=== PATIENT | male | born 1955 | race African-American/Black ===

== ENCOUNTER 2017-03-10 11:50 | Emergency (ER) | payer MEDICAID, MEDICARE ==
[~2017-03-10] VITALS: Ht 177.8 cm; Wt 76.0 kg
[~2017-03-10 11:50] MED LIST: AMLO10TA80 PO; LISI10TA5 PO
[2017-03-10] MEDS ORDERED: SODIUM CHLORIDE 0.9% 1,000 ML IV ONE (12:05)
[2017-03-10] MEDS ORDERED: KETOROLAC 30MG/ML VIAL IV STA (12:05)
[2017-03-10 13:07] LABS: BASOPHILS % 0.3 % (0.0-2.0); EOSINOPHILS % 1.6 % (0.0-5.0); HEMATOCRIT. 44.8 % (42.0-52.0); HEMOGLOBIN. 15.4 g/dL (14.0-18.0); LYMPHOCYTES % 19.9 % (20.0-50.0); MEAN CORPUSCULAR HEMOGLOBIN 31.5 pg (28.0-32.0); MEAN CORPUSCULAR VOLUME 91.7 fL (80.0-94.0); MEAN PLATELET VOLUME 8.1 fl (7.4-10.4); MONOCYTES % 12.1 % (2.0-8.0); NEUTROPHILS % 66.1 % (40.0-76.0); PLATELET 208 x1000/uL (130-400); RED BLOOD CELL COUNT 4.89 mill/uL (4.7-6.1); RED CELL DISTRIBUTION WIDTH 15.7 % (11.6-14.6)
[2017-03-10 13:14] LABS: INR 1.3; PROTHROMBIN TIME 13.2 sec (9.4-11.6)
[2017-03-10 13:19] LABS: CARBON DIOXIDE 24 mEq/L (21-32); CHLORIDE 102 mEq/L (98-107)
[2017-03-10 14:23] LABS: CLARITY URINE CLEAR (CLEAR); COLOR URINE YELLOW (YELLOW); GLUCOSE URINE NEGATIVE (NEGATIVE); KETONES URINE NEGATIVE (NEGATIVE); LEUKOCYTE ESTERASE URINE NEGATIVE (NEGATIVE); NITRITE URINE NEGATIVE (NEGATIVE); OCCULT BLOOD URINE NEGATIVE (NEGATIVE); PH URINE 7.5 (4.5-8.0); PROTEIN URINE NEGATIVE (NEGATIVE); SPECIFIC GRAVITY URINE 1.006 (1.005-1.030)
[2017-03-10 16:50] VITALS: BP 136/94
== END 2017-03-10 16:52 | disposition home or self-care (01) ==
LOC: ER 13:57
DX: E86.0 Dehydration (principal); I10 Essential (primary) hypertension; J98.11 Atelectasis
CPT/HCPCS: 36415; 71010; 80053; 81003; 84484; 85025; 85610; 86850; 86900; 86901; 93005; 96361; 96374; 99285; J1885; J7030

== ENCOUNTER 2017-12-10 07:27 | Emergency (ER) | payer MEDICARE, MEDICAID ==
[~2017-12-10] VITALS: Ht 185.4 cm; Wt 80.0 kg
[~2017-12-10 07:27] MED LIST changes: +RIVA20TA MT
[2017-12-10] MEDS ORDERED: KETOROLAC 30MG/ML VIAL IV ONE (08:45)
[2017-12-10 09:15] LABS: HEMATOCRIT. 34.5 % (42.0-52.0); HEMOGLOBIN. 11.7 g/dL (14.0-18.0); MEAN CORPUSCULAR HEMOGLOBIN 30.6 pg (28.0-32.0); MEAN CORPUSCULAR VOLUME 90.6 fL (80.0-94.0); MEAN PLATELET VOLUME 7.5 fl (7.4-10.4); PLATELET 210 x1000/uL (130-400); RED BLOOD CELL COUNT 3.81 mill/uL (4.7-6.1); RED CELL DISTRIBUTION WIDTH 14.5 % (11.6-14.6)
[2017-12-10 09:20] LABS: CHLORIDE 110 mEq/L (98-107)
[2017-12-10 09:26] LABS: D-DIMER 0.53 mg/L FEU (<0.50); INR 1.3; PARTIAL THROMBOPLASTIN TIME 30.8 sec (23.4-31.0); PROTHROMBIN TIME 13.3 sec (9.4-11.6)
[2017-12-10] MEDS ORDERED: HYDRALAZINE 20MG/ML VIAL IV ONE (09:30)
[2017-12-10] MEDS ORDERED: POTASSIUM CHLORIDE 20MEQ TABLET SR PO ONE (10:15)
[2017-12-10] MEDS ORDERED: ONDANSETRON HCL 4MG/2ML VIAL IV ONE (10:30)
[2017-12-10] MEDS ORDERED: MORPHINE SULFATE 4 MG/ML CPJ (NOT FOR IM USE) IV ONE (10:30)
[2017-12-10 11:08] LABS: PLATELET ESTIMATE NORMAL
[2017-12-10] MEDS ORDERED: IOHEXOL-350 100 ML BOTTLE ONE (12:44)
[2017-12-10 12:51] VITALS: BP 163/111
== END 2017-12-10 13:10 | disposition home or self-care (01) ==
LOC: ER 08:13
DX: R07.89 Other chest pain (principal); I10 Essential (primary) hypertension; J44.9 Chronic obstructive pulmonary disease, unspecified; M54.5 Low back pain; Z87.01 Personal history of pneumonia (recurrent)
CPT/HCPCS: 36415; 71045; 71275; 80053; 83880; 84484; 85025; 85379; 85610; 85730; 93005; 93970; 96374; 96375; 99285; J0360; J1885; J2270; J2405; Q9967; J7040

== ENCOUNTER 2018-01-15 14:42 | Emergency (ER) | payer MEDICARE, MEDICAID ==
[~2018-01-15] VITALS: Ht 182.9 cm; Wt 70.0 kg
[2018-01-15 16:58] LABS: BASOPHILS % 1.1 % (0.0-2.0); HEMATOCRIT. 36.7 % (42.0-52.0); HEMOGLOBIN. 12.2 g/dL (14.0-18.0); INR 1.2; MEAN CORPUSCULAR HEMOGLOBIN 30.4 pg (28.0-32.0); MEAN CORPUSCULAR VOLUME 91.4 fL (80.0-94.0); MEAN PLATELET VOLUME 7.9 fl (7.4-10.4); MONOCYTES % 13.5 % (2.0-8.0); NEUTROPHILS % 59.4 % (40.0-76.0); PLATELET 237 x1000/uL (130-400); PROTHROMBIN TIME 11.6 sec (9.1-11.1); RED BLOOD CELL COUNT 4.01 mill/uL (4.7-6.1); RED CELL DISTRIBUTION WIDTH 17.4 % (11.6-14.6)
[2018-01-15 16:59] LABS: CHLORIDE 106 mEq/L (98-107)
[2018-01-15] MEDS ORDERED: KETOROLAC 60MG/2ML VIAL IM ONE (17:15)
[2018-01-15] MEDS ORDERED: CEFTRIAXONE SODIUM 1 G/VIAL IM ONE (17:15)
[2018-01-15] MEDS ORDERED: TETANUS, DIPHTHERIA, PERTUSSIS VAC/PF 0.5ML (>7YR OLD) IM ONE (17:15)
[2018-01-15] MEDS ORDERED: SODIUM CHLORIDE 0.9% 1000ML BAG (SEPSIS BOLUS) IV ONE (17:45)
[2018-01-15 22:07] VITALS: BP 136/92
== END 2018-01-15 22:12 | disposition home or self-care (01) ==
LOC: ER 14:42
DX: T63.301A Toxic effect of unspecified spider venom, accidental (unintentional), initial encounter (principal); L02.413 Cutaneous abscess of right upper limb; Y92.89 Other specified places as the place of occurrence of the external cause; I10 Essential (primary) hypertension; E87.2 Acidosis; Z23 Encounter for immunization; Z79.899 Other long term (current) drug therapy
CPT/HCPCS: 36415; 73090; 80053; 83605; 85025; 85610; 87040; 87070; 87077; 87205; 90471; 90715; 96372; 99285; J0696; J1885; J7030

== ENCOUNTER → 2018-02-25 | Outpatient (CLI) | payer MEDICARE, MEDICAID | END | disposition home or self-care (01) | LOC: US 07:53 | PROVIDERS: ATTEND Internal Medicine Gastroenterology | DX: K80.20 Calculus of gallbladder without cholecystitis without obstruction (principal); N28.1 Cyst of kidney, acquired; B18.2 Chronic viral hepatitis C | CPT/HCPCS: 76700 ==

== ENCOUNTER 2018-09-12 11:03 | Inpatient (IN) | payer OTHER, MEDICAID ==
[~2018-09-12] VITALS: Ht 180.3 cm; Wt 82.6 kg
[2018-09-12] MEDS ORDERED: NITROGLYCERIN 0.4MG TABLET SL SL PRN (14:15)
[2018-09-12] MEDS ORDERED: ASPIRIN 81MG TABLET PO ONE (14:15)
[2018-09-12 15:16] LABS: CHLORIDE 109 mEq/L (98-107)
[2018-09-12 15:19] LABS: D-DIMER 1.98 mg/L FEU (<0.50); INR 1.2; PARTIAL THROMBOPLASTIN TIME 28.5 sec (23.4-31.0); PROTHROMBIN TIME 12.6 sec (9.6-11.0)
[2018-09-12 15:22] LABS: BASOPHILS % 1.2 % (0.0-2.0); EOSINOPHILS % 6.5 % (0.0-5.0); HEMATOCRIT. 30.2 % (42.0-52.0); HEMOGLOBIN. 9.6 g/dL (14.0-18.0); LYMPHOCYTES % 24.5 % (20.0-50.0); MEAN CORPUSCULAR HEMOGLOBIN 23.9 pg (28.0-32.0); MEAN CORPUSCULAR VOLUME 75.6 fL (80.0-94.0); NEUTROPHILS % 53.8 % (40.0-76.0); PLATELET 169 x1000/uL (130-400)
[2018-09-12] MEDS ORDERED: NITROGLYCERIN OINT 1GM/INCH UDPKT TD ONE (17:00)
[2018-09-12] MEDS ORDERED: FUROSEMIDE 40MG/4ML VIAL IV ONE (17:00)
[2018-09-12] MEDS ORDERED: IOHEXOL-350 100 ML BOTTLE ONE (21:26)
[2018-09-12 22:30] VITALS: BP 156/106
[2018-09-12 22:46] VITALS: BP 152/98
[2018-09-13] MEDS ORDERED: ONDANSETRON HCL 4MG/2ML INJ IV PRN
[2018-09-13] MEDS ORDERED: ACETAMINOPHEN 325MG TABLET PO PRN
[2018-09-13] MEDS ORDERED: IPRATROPIUM/ALBUTEROL 0.5-3(2.5)MG/3ML NEB INH PRN
[2018-09-13] MEDS ORDERED: HYDROCODONE/ACETAMINOPHEN 5/325MG TABLET PO PRN
[2018-09-13] MEDS ORDERED: LEVOFLOXACIN 500MG PREMIX 100 ML IV SCH
[2018-09-13] MEDS: LORAZEPAM 2MG/ML CPJ IV PRN ×2 (01:16→21:02)
[2018-09-13] MEDS: LEVOFLOXACIN 500MG PREMIX 100 ML IV SCH (01:16)
[2018-09-13 02:00] LABS: *AMPHETAMINES SCREEN URINE NEGATIVE (NEGATIVE); *BARBITURATES SCREEN URINE NEGATIVE (NEGATIVE); *BENZODIAZEPINES SCREEN URINE NEGATIVE (NEGATIVE); *COCAINE SCREEN URINE NEGATIVE (NEGATIVE)
[2018-09-13 02:01] LABS: CANNABINOID URINE SCREEN NEGATIVE (NEGATIVE); METHADONE URINE SCREEN NEGATIVE (NEGATIVE); OPIATES URINE SCREEN NEGATIVE (NEGATIVE); PHENCYCLIDINE URINE SCREEN NEGATIVE (NEGATIVE)
[2018-09-13 04:00] VITALS: BP 152/99
[2018-09-13 07:07] LABS: EOSINOPHILS % 8.3 % (0.0-5.0); HEMATOCRIT. 30.1 % (42.0-52.0); HEMOGLOBIN. 9.8 g/dL (14.0-18.0); LYMPHOCYTES % 20.2 % (20.0-50.0); MEAN CORPUSCULAR VOLUME 74.1 fL (80.0-94.0); MEAN PLATELET VOLUME 8.4 fl (7.4-10.4); MONOCYTES % 11.7 % (2.0-8.0); NEUTROPHILS % 58.8 % (40.0-76.0); PLATELET 208 x1000/uL (130-400); RED BLOOD CELL COUNT 4.06 mill/uL (4.7-6.1)
[2018-09-13 07:30] LABS: CHLORIDE 107 mEq/L (98-107)
[2018-09-13 07:46] LABS: HDL CHOLESTEROL 47 mg/dL (40-59); LDL CHOLESTEROL 89 mg/dL (5-100)
[2018-09-13 07:48] LABS: CREATINE KINASE MB FRACTION 3.5 ng/mL (0.5-3.6); T4 FREE 1.41 ng/dL (0.76-1.46)
[2018-09-13 07:51] LABS: CREATINE KINASE 206 IU/L (39-308)
[2018-09-13] MEDS: ENOXAPARIN 40MG/0.4ML SYR SUBCUT SCH (08:42)
[2018-09-13] MEDS ORDERED: PREDNISONE 20MG TABLET PO SCH (13:45)
[2018-09-13 20:22] VITALS: BP 145/95
[2018-09-14] VITALS: BP 149/96
[2018-09-14] MEDS: LEVOFLOXACIN 500MG PREMIX 100 ML IV SCH (01:16)
[2018-09-14 04:05] VITALS: BP 158/83
[2018-09-14 08:00] VITALS: BP 142/95
[2018-09-14] MEDS: ENOXAPARIN 40MG/0.4ML SYR SUBCUT SCH (08:36)
[2018-09-14 12:00] VITALS: BP 156/93
[2018-09-14] MEDS: CLONIDINE 0.1MG TABLET PO PRN (12:09)
[2018-09-14 16:00] VITALS: BP 136/87
[2018-09-14] MEDS: LORAZEPAM 2MG/ML CPJ IV PRN (17:32)
[2018-09-14 20:00] VITALS: BP 129/76
[2018-09-14] MEDS ORDERED: ZOLPIDEM TARTRATE 5MG TABLET PO PRN (21:00)
[2018-09-15] VITALS: BP 131/97
[2018-09-15] MEDS: LEVOFLOXACIN 500MG PREMIX 100 ML IV SCH (01:50)
[2018-09-15] MEDS ORDERED: LEVOFLOXACIN 500MG TABLET PO NR (02:15)
[2018-09-15 04:00] VITALS: BP 145/71
[2018-09-15 08:00] VITALS: BP 166/108
[2018-09-15] MEDS: ENOXAPARIN 40MG/0.4ML SYR SUBCUT SCH (08:44)
[2018-09-15] MEDS: LORAZEPAM 2MG/ML CPJ IV PRN (08:45)
[2018-09-15] MEDS: CLONIDINE 0.1MG TABLET PO PRN (09:17)
[2018-09-15 15:30] VITALS: BP 140/90
[2018-09-15] MEDS ORDERED: LEVOFLOXACIN 500MG TABLET PO SCH (21:00)
== END 2018-09-15 15:38 | disposition home or self-care (01) | DRG 190 ==
LOC: ER 11:03 → 6WST 17:18 → ENRESERV 21:02
PROVIDERS: ADMIT Internal Medicine; ATTEND Internal Medicine
DX: J44.1 Chronic obstructive pulmonary disease with (acute) exacerbation (principal); I50.33 Acute on chronic diastolic (congestive) heart failure; I11.0 Hypertensive heart disease with heart failure; D64.9 Anemia, unspecified; I27.20 Pulmonary hypertension, unspecified; F41.9 Anxiety disorder, unspecified; F32.9 Major depressive disorder, single episode, unspecified; Z86.718 Personal history of other venous thrombosis and embolism; Z86.711 Personal history of pulmonary embolism; Z79.01 Long term (current) use of anticoagulants; Z86.73 Personal history of transient ischemic attack (TIA), and cerebral infarction without residual deficits; Z79.899 Other long term (current) drug therapy
CPT/HCPCS: 36415; 71045; 71275; 80061; 80305; 82550; 82553; 83735; 83880; 84132; 84439; 84443; 84484; 85379; 93005; 93970; 96372; 96374; 97116; 97162; 99285; J1650; J1940; J1956; J2060; J7050; J7512; J7620; Q9967

== ENCOUNTER 2019-01-18 15:13 | Inpatient (IN) | payer OTHER, MEDICAID ==
[~2019-01-18] VITALS: Ht 182.9 cm; Wt 68.0 kg
[2019-01-18 17:22] LABS: BASOPHILS % 0.9 % (0.0-2.0); EOSINOPHILS % 1.9 % (0.0-5.0); HEMATOCRIT. 33.5 % (42.0-52.0); HEMOGLOBIN. 10.8 g/dL (14.0-18.0); LYMPHOCYTES % 29.2 % (20.0-50.0); MEAN CORPUSCULAR HEMOGLOBIN 25.3 pg (28.0-32.0); MEAN CORPUSCULAR VOLUME 78.6 fL (80.0-94.0); MEAN PLATELET VOLUME 7.6 fl (7.4-10.4); MONOCYTES % 13.8 % (2.0-8.0); NEUTROPHILS % 54.2 % (40.0-76.0); PLATELET 178 x1000/uL (130-400); RED BLOOD CELL COUNT 4.26 mill/uL (4.7-6.1); RED CELL DISTRIBUTION WIDTH 22.4 % (11.6-14.6)
[2019-01-18 17:45] LABS: CHLORIDE 106 mEq/L (98-107)
[2019-01-18] MEDS ORDERED: FUROSEMIDE 20MG/2ML VIAL IVP ONE (18:00)
[2019-01-18 18:22] LABS: PLATELET ESTIMATE NORMAL
[2019-01-18 20:50] VITALS: BP 131/91
[2019-01-18] MEDS ORDERED: TEMAZEPAM 15MG CAPSULE PO PRN (22:45)
[2019-01-18] MEDS ORDERED: ACETAMINOPHEN 325MG TABLET PO PRN (22:45)
[2019-01-19 00:42] VITALS: BP 139/89
[2019-01-19 01:14] LABS: BASOPHILS % 1.5 % (0.0-2.0); EOSINOPHILS % 5.2 % (0.0-5.0); HEMATOCRIT. 38.1 % (42.0-52.0); HEMOGLOBIN. 12.3 g/dL (14.0-18.0); LYMPHOCYTES % 32.5 % (20.0-50.0); MEAN CORPUSCULAR HEMOGLOBIN 25.3 pg (28.0-32.0); MEAN CORPUSCULAR VOLUME 78.2 fL (80.0-94.0); MEAN PLATELET VOLUME 8.3 fl (7.4-10.4); MONOCYTES % 10.3 % (2.0-8.0); NEUTROPHILS % 50.5 % (40.0-76.0); PLATELET 185 x1000/uL (130-400); RED BLOOD CELL COUNT 4.88 mill/uL (4.7-6.1); RED CELL DISTRIBUTION WIDTH 23.2 % (11.6-14.6)
[2019-01-19 01:36] LABS: CHLORIDE 106 mEq/L (98-107)
[2019-01-19 01:43] LABS: LDL CHOLESTEROL 128 mg/dL (5-100)
[2019-01-19 01:45] LABS: HDL CHOLESTEROL 52 mg/dL (40-59); T4 FREE 1.45 ng/dL (0.76-1.46)
[2019-01-19 04:50] VITALS: BP 133/90
[2019-01-19 06:29] LABS: CREATINE KINASE MB FRACTION 3.2 ng/mL (0.5-3.6)
[2019-01-19 08:00] VITALS: BP 131/87
[2019-01-19] MEDS: FUROSEMIDE 40MG/4ML VIAL IVP SCH (08:43)
[2019-01-19] MEDS: LOSARTAN POTASSIUM 50 MG TABLET PO SCH (08:45)
[2019-01-19] MEDS: ASPIRIN 81MG TABLET PO SCH (08:45)
[2019-01-19] MEDS: POTASSIUM CHLORIDE 20MEQ TABLET SR PO SCH (08:45)
[2019-01-19] MEDS: ENOXAPARIN 40MG/0.4ML SYR SUBCUT SCH (08:45)
[2019-01-19 12:00] VITALS: BP 126/87
[2019-01-19] MEDS ORDERED: CLONIDINE 0.1MG TABLET PO PRN (12:30)
[2019-01-19] MEDS ORDERED: LORAZEPAM 2MG/ML CPJ IV PRN (12:30)
[2019-01-19] MEDS ORDERED: DIPHENHYDRAMINE 50MG/ML VIAL IV PRN (12:30)
[2019-01-19] MEDS ORDERED: HYDROCODONE/ACETAMINOPHEN 5/325MG TABLET PO PRN (12:30)
[2019-01-19] MEDS ORDERED: IPRATROPIUM/ALBUTEROL 0.5-3(2.5)MG/3ML NEB HHN PRN (12:30)
[2019-01-19] MEDS ORDERED: CARI-166 PO (13:38)
[2019-01-19] MEDS ORDERED: ZOLP10TA6 PO (13:38)
[2019-01-19] MEDS ORDERED: AMLO5TAB88 PO (13:38)
[2019-01-19] MEDS ORDERED: ALBU90AE INH (13:38)
[2019-01-19 15:34] LABS: CREATINE KINASE 154 IU/L (39-308)
[2019-01-19 16:00] VITALS: BP 128/82
[2019-01-19 20:15] VITALS: BP 134/80
[2019-01-19] MEDS ORDERED: LACTULOSE 20G/30ML UDC PO PRN (21:00)
[2019-01-20 00:40] VITALS: BP 98/49
[2019-01-20 03:15] LABS: CREATINE KINASE 137 IU/L (39-308)
[2019-01-20 03:16] LABS: CREATINE KINASE MB FRACTION 2.7 ng/mL (0.5-3.6)
[2019-01-20 03:17] LABS: BASOPHILS % 1.7 % (0.0-2.0); EOSINOPHILS % 4.6 % (0.0-5.0); HEMOGLOBIN. 11.1 g/dL (14.0-18.0); LYMPHOCYTES % 24.4 % (20.0-50.0); MEAN CORPUSCULAR HEMOGLOBIN 25.4 pg (28.0-32.0); MEAN CORPUSCULAR VOLUME 77.8 fL (80.0-94.0); MEAN PLATELET VOLUME 8.5 fl (7.4-10.4); MONOCYTES % 14.5 % (2.0-8.0); NEUTROPHILS % 54.8 % (40.0-76.0); PLATELET 193 x1000/uL (130-400); RED BLOOD CELL COUNT 4.37 mill/uL (4.7-6.1)
[2019-01-20 03:53] LABS: CHLORIDE 105 mEq/L (98-107)
[2019-01-20 07:02] LABS: INR 1.3; PROTHROMBIN TIME 13.3 sec (9.6-11.0)
[2019-01-20 08:00] VITALS: BP 121/87
[2019-01-20] MEDS: ENOXAPARIN 40MG/0.4ML SYR SUBCUT SCH (09:24)
[2019-01-20] MEDS: LOSARTAN POTASSIUM 50 MG TABLET PO SCH (09:24)
[2019-01-20] MEDS: ASPIRIN 81MG TABLET PO SCH (09:24)
[2019-01-20] MEDS: FUROSEMIDE 40MG/4ML VIAL IVP SCH (09:24)
[2019-01-20] MEDS: POTASSIUM CHLORIDE 20MEQ TABLET SR PO SCH (09:24)
[2019-01-20 12:00] VITALS: BP 109/66
[2019-01-20 13:33] LABS: HEPATITIS B SURFACE ANTIGEN NEGATIVE
[2019-01-20 16:00] VITALS: BP 121/49
[2019-01-20 16:52] LABS: CLARITY URINE CLEAR (CLEAR); COLOR URINE YELLOW (YELLOW); KETONES URINE NEGATIVE (NEGATIVE); LEUKOCYTE ESTERASE URINE NEGATIVE (NEGATIVE); NITRITE URINE NEGATIVE (NEGATIVE); OCCULT BLOOD URINE NEGATIVE (NEGATIVE); PROTEIN URINE NEGATIVE (NEGATIVE); SPECIFIC GRAVITY URINE 1.013 (1.005-1.030)
[2019-01-20 17:54] VITALS: BP 121/49
[2019-01-20 18:20] LABS: *AMPHETAMINES SCREEN URINE NEGATIVE (NEGATIVE)
[2019-01-20 18:21] LABS: *BARBITURATES SCREEN URINE NEGATIVE (NEGATIVE); *BENZODIAZEPINES SCREEN URINE NEGATIVE (NEGATIVE); *COCAINE SCREEN URINE NEGATIVE (NEGATIVE); OPIATES URINE SCREEN NEGATIVE (NEGATIVE)
[2019-01-20 18:22] LABS: CANNABINOID URINE SCREEN NEGATIVE (NEGATIVE); METHADONE URINE SCREEN NEGATIVE (NEGATIVE)
[2019-01-20 18:23] LABS: PHENCYCLIDINE URINE SCREEN NEGATIVE (NEGATIVE)
== END 2019-01-20 18:43 | DRG 205 ==
LOC: ER 15:13 → 6WST 18:44 → EDBEDREQ 18:47 → ENRESERV 20:00
PROVIDERS: ADMIT Internal Medicine; ATTEND Internal Medicine
DX: M94.0 Chondrocostal junction syndrome [Tietze] (principal); I50.43 Acute on chronic combined systolic (congestive) and diastolic (congestive) heart failure; J44.1 Chronic obstructive pulmonary disease with (acute) exacerbation; D68.59 Other primary thrombophilia; I11.0 Hypertensive heart disease with heart failure; B19.20 Unspecified viral hepatitis C without hepatic coma; F32.9 Major depressive disorder, single episode, unspecified; F10.10 Alcohol abuse, uncomplicated; F41.9 Anxiety disorder, unspecified; D64.9 Anemia, unspecified; Z86.711 Personal history of pulmonary embolism; Z86.718 Personal history of other venous thrombosis and embolism; Z91.19 Patient's noncompliance with other medical treatment and regimen
CPT/HCPCS: 36415; 71045; 71275; 80048; 80061; 80305; 81003; 82550; 82553; 83735; 83880; 84439; 84443; 84484; 93005; 93306; 93970; 96374; 99285; J1650; J1940; J2060

== ENCOUNTER 2019-02-10 04:02 | Emergency (ER) | payer OTHER, MEDICAID ==
[~2019-02-10] VITALS: Ht 180.3 cm; Wt 74.0 kg
[~2019-02-10 04:02] MED LIST changes: +ALBU90AE INH; -AMLO10TA80 PO; +AMLO5TAB88 PO; +CARI-166 PO; -LISI10TA5 PO; -RIVA20TA MT; +ZOLP10TA6 PO
[2019-02-10 04:50] VITALS: BP 162/117
[2019-02-10 05:08] LABS: EOSINOPHILS % 3.7 % (0.0-5.0); HEMATOCRIT. 34.5 % (42.0-52.0); HEMOGLOBIN. 11.1 g/dL (14.0-18.0); LYMPHOCYTES % 27.8 % (20.0-50.0); MEAN CORPUSCULAR HEMOGLOBIN 25.4 pg (28.0-32.0); MEAN CORPUSCULAR VOLUME 78.9 fL (80.0-94.0); MEAN PLATELET VOLUME 7.6 fl (7.4-10.4); MONOCYTES % 12.3 % (2.0-8.0); NEUTROPHILS % 54.2 % (40.0-76.0); PLATELET 220 x1000/uL (130-400); RED BLOOD CELL COUNT 4.37 mill/uL (4.7-6.1); RED CELL DISTRIBUTION WIDTH 21.9 % (11.6-14.6)
[2019-02-10 05:16] LABS: CHLORIDE 104 mEq/L (98-107)
== END 2019-02-10 06:14 | disposition home or self-care (01) ==
LOC: ER 04:02
DX: R06.02 Shortness of breath (principal); R42 Dizziness and giddiness; R10.9 Unspecified abdominal pain; I11.0 Hypertensive heart disease with heart failure; I50.9 Heart failure, unspecified; F32.9 Major depressive disorder, single episode, unspecified; F41.9 Anxiety disorder, unspecified; J44.9 Chronic obstructive pulmonary disease, unspecified; F10.20 Alcohol dependence, uncomplicated; Z98.890 Other specified postprocedural states; Y90.9 Presence of alcohol in blood, level not specified
CPT/HCPCS: 36415; 71045; 83880; 84484; 93005; 99284

== ENCOUNTER 2019-02-11 23:49 | Emergency (ER) | payer OTHER, MEDICAID ==
[~2019-02-11] VITALS: Ht 180.3 cm; Wt 75.0 kg
[2019-02-12] MEDS ORDERED: MAGNESIUM/ALUMINUM HYDROXIDE/SIMETHICONE 30ML UDC PO ONE (01:30)
[2019-02-12] MEDS ORDERED: VISCOUS LIDOCAINE 2% 15 ML UDC PO ONE (01:30)
[2019-02-12] MEDS ORDERED: ASPIRIN 81MG TABLET PO ONE (01:30)
[2019-02-12 02:15] LABS: BASOPHILS % 2.1 % (0.0-2.0); EOSINOPHILS % 3.9 % (0.0-5.0); HEMATOCRIT. 32.7 % (42.0-52.0); HEMOGLOBIN. 10.5 g/dL (14.0-18.0); LYMPHOCYTES % 30.7 % (20.0-50.0); MEAN CORPUSCULAR HEMOGLOBIN 25.6 pg (28.0-32.0); MEAN CORPUSCULAR VOLUME 79.2 fL (80.0-94.0); MEAN PLATELET VOLUME 8.1 fl (7.4-10.4); NEUTROPHILS % 52.3 % (40.0-76.0); PLATELET 214 x1000/uL (130-400); RED BLOOD CELL COUNT 4.13 mill/uL (4.7-6.1); RED CELL DISTRIBUTION WIDTH 21.6 % (11.6-14.6)
[2019-02-12 02:16] LABS: CHLORIDE 107 mEq/L (98-107)
[2019-02-12 04:26] VITALS: BP 158/101
== END 2019-02-12 04:28 | disposition home or self-care (01) ==
LOC: ER 23:49
DX: R07.89 Other chest pain (principal)
CPT/HCPCS: 36415; 71045; 83880; 84484; 93005; 99284

== ENCOUNTER 2019-02-19 01:36 | Emergency (ER) | payer OTHER, MEDICAID ==
[~2019-02-19] VITALS: Ht 180.3 cm; Wt 75.0 kg
[2019-02-19] MEDS ORDERED: HYDROCODONE/ACETAMINOPHEN 5/325MG TABLET PO ONE (02:45)
[2019-02-19] MEDS ORDERED: KETOROLAC 60MG/2ML VIAL IM ONE (04:15)
[2019-02-19 05:04] VITALS: BP 154/99
== END 2019-02-19 05:26 | disposition home or self-care (01) ==
LOC: ER 02:34
DX: L97.529 Non-pressure chronic ulcer of other part of left foot with unspecified severity (principal); L03.116 Cellulitis of left lower limb; R03.0 Elevated blood-pressure reading, without diagnosis of hypertension
CPT/HCPCS: 96372; 99283; J1885

== ENCOUNTER 2019-03-19 10:02 | Inpatient (IN) | payer OTHER, MEDICAID ==
[~2019-03-19] VITALS: Ht 182.9 cm; Wt 81.7 kg
[2019-03-19] MEDS ORDERED: NITROGLYCERIN 0.4MG TABLET SL SL ONE (10:45)
[2019-03-19 10:58] LABS: BASOPHILS % 1.8 % (0.0-2.0); EOSINOPHILS % 3.2 % (0.0-5.0); HEMATOCRIT. 32.6 % (42.0-52.0); HEMOGLOBIN. 10.5 g/dL (14.0-18.0); LYMPHOCYTES % 20.8 % (20.0-50.0); MEAN CORPUSCULAR HEMOGLOBIN 25.5 pg (28.0-32.0); MEAN PLATELET VOLUME 8.1 fl (7.4-10.4); MONOCYTES % 12.2 % (2.0-8.0); PLATELET 220 x1000/uL (130-400); RED BLOOD CELL COUNT 4.13 mill/uL (4.7-6.1); RED CELL DISTRIBUTION WIDTH 18.4 % (11.6-14.6)
[2019-03-19 11:04] LABS: CHLORIDE 108 mEq/L (98-107)
[2019-03-19 11:08] LABS: INR 1.2; PARTIAL THROMBOPLASTIN TIME 27.8 sec (23.4-31.0); PROTHROMBIN TIME 12.3 sec (9.6-11.0)
[2019-03-19 11:23] LABS: *AMPHETAMINES SCREEN URINE NEGATIVE (NEGATIVE); *BARBITURATES SCREEN URINE NEGATIVE (NEGATIVE)
[2019-03-19 11:25] LABS: *BENZODIAZEPINES SCREEN URINE NEGATIVE (NEGATIVE); *COCAINE SCREEN URINE NEGATIVE (NEGATIVE); METHADONE URINE SCREEN NEGATIVE (NEGATIVE); OPIATES URINE SCREEN NEGATIVE (NEGATIVE)
[2019-03-19 11:26] LABS: CANNABINOID URINE SCREEN NEGATIVE (NEGATIVE); PHENCYCLIDINE URINE SCREEN NEGATIVE (NEGATIVE)
[2019-03-19] MEDS ORDERED: FUROSEMIDE 20MG/2ML VIAL IVP ONE (11:45)
[2019-03-19 14:30] VITALS: BP 151/93
[2019-03-19 17:24] VITALS: BP 151/93
== END 2019-03-19 19:30 | disposition short-term general hospital (02) | DRG 311 ==
LOC: ER 10:10 → EDBEDREQ 10:21 → 8WST 12:02 → EDBEDREQTM 12:07 → EDBEDREQ 12:07 → SUPCPDRO 13:25 → ENRESERV 14:33
PROVIDERS: ADMIT Internal Medicine; ATTEND Internal Medicine
DX: I24.9 Acute ischemic heart disease, unspecified (principal); I50.43 Acute on chronic combined systolic (congestive) and diastolic (congestive) heart failure; J44.1 Chronic obstructive pulmonary disease with (acute) exacerbation; I45.2 Bifascicular block; I42.9 Cardiomyopathy, unspecified; I11.0 Hypertensive heart disease with heart failure; B19.20 Unspecified viral hepatitis C without hepatic coma; D64.9 Anemia, unspecified; F10.10 Alcohol abuse, uncomplicated; F32.9 Major depressive disorder, single episode, unspecified; F41.9 Anxiety disorder, unspecified; I07.1 Rheumatic tricuspid insufficiency; I44.5 Left posterior fascicular block; I45.81 Long QT syndrome; R06.03 Acute respiratory distress; Z91.19 Patient's noncompliance with other medical treatment and regimen; Z86.718 Personal history of other venous thrombosis and embolism
CPT/HCPCS: 36415; 71045; 80305; 83880; 84484; 93005; 96374; 99285; J1940

== ENCOUNTER 2019-07-13 13:45 | Inpatient (IN) | payer OTHER ==
[~2019-07-13] VITALS: Ht 182.9 cm; Wt 81.6 kg
[~2019-07-13 13:45] MED LIST changes: -CARI-166 PO; +CARI350T28 PO
[2019-07-13 15:16] LABS: CLARITY URINE CLEAR (CLEAR); COLOR URINE DARK YELLOW (YELLOW); KETONES URINE NEGATIVE (NEGATIVE); LEUKOCYTE ESTERASE URINE NEGATIVE (NEGATIVE); NITRITE URINE NEGATIVE (NEGATIVE); OCCULT BLOOD URINE NEGATIVE (NEGATIVE); PH URINE 5.5 (4.5-8.0); PROTEIN URINE 2+ (NEGATIVE); SPECIFIC GRAVITY URINE 1.024 (1.005-1.030)
[2019-07-13 15:58] LABS: CHLORIDE 108 mEq/L (98-107)
[2019-07-13 16:00] LABS: HEMOGLOBIN. 9.4 g/dL (14.0-18.0); MEAN CORPUSCULAR HEMOGLOBIN 24.1 pg (28.0-32.0); MEAN CORPUSCULAR VOLUME 76.5 fL (80.0-94.0); MEAN PLATELET VOLUME 7.6 fl (7.4-10.4); PLATELET 156 x1000/uL (130-400); RED BLOOD CELL COUNT 3.92 mill/uL (4.7-6.1); RED CELL DISTRIBUTION WIDTH 22.6 % (11.6-14.6)
[2019-07-13 16:32] LABS: PLATELET ESTIMATE NORMAL
[2019-07-13] MEDS ORDERED: HYDROCODONE/ACETAMINOPHEN 5/325MG TABLET PO ONE (17:45)
[2019-07-13] MEDS ORDERED: LORAZEPAM 1MG TABLET PO ONE (19:15)
[2019-07-13 22:10] VITALS: BP 132/78
[2019-07-13 22:20] VITALS: BP 132/78
[2019-07-14] VITALS (7 sets, daily range): BP systolic 110–147; BP diastolic 68–83
[2019-07-14] MEDS: TEMAZEPAM 15MG CAPSULE PO PRN (00:25)
[2019-07-14] MEDS: HYDROCODONE/ACETAMINOPHEN 5/325MG TABLET PO PRN ×2 (00:26→17:55)
[2019-07-14] MEDS: FUROSEMIDE 40MG/4ML VIAL IVP SCH ×3 (01:10→17:00)
[2019-07-14] MEDS: CARVEDILOL 3.125 MG TABLET PO SCH ×3 (01:10→21:01)
[2019-07-14 06:41] LABS: CREATINE KINASE MB FRACTION 2.2 ng/mL (0.5-3.6)
[2019-07-14] MEDS: BLOOD SUGAR DIAGNOSTIC STRIP TEST SCH ×4 (07:33→21:00)
[2019-07-14] MEDS: LOSARTAN POTASSIUM 50 MG TABLET PO SCH (08:33)
[2019-07-14] MEDS: ASPIRIN 81MG TABLET PO SCH (08:33)
[2019-07-14 08:59] LABS: *AMPHETAMINES SCREEN URINE NEGATIVE (NEGATIVE)
[2019-07-14 09:00] LABS: *BARBITURATES SCREEN URINE NEGATIVE (NEGATIVE); *BENZODIAZEPINES SCREEN URINE PRESUMTIVE POSITIVE (NEGATIVE); *COCAINE SCREEN URINE NEGATIVE (NEGATIVE); METHADONE URINE SCREEN NEGATIVE (NEGATIVE); OPIATES URINE SCREEN PRESUMTIVE POSITIVE (NEGATIVE); PHENCYCLIDINE URINE SCREEN NEGATIVE (NEGATIVE)
[2019-07-14] MEDS ORDERED: ENOXAPARIN 40MG/0.4ML SYR SUBCUT SCH (09:00)
[2019-07-14 09:01] LABS: CANNABINOID URINE SCREEN NEGATIVE (NEGATIVE)
[2019-07-14 11:39] LABS: BG BASE EXCESS -1.7 mmol/L (-2.0-2.0); BG CARBOXYHEMOGLOBIN 0.3 % (0.5-1.5); BG DEOXYHEMOGLOBIN 4.7 % (0.0-5.0); BG FRACTION INSPIRED OXYGEN 21; BG HCO3 ACT 21.8 mmol/L (22.0-26.0); BG METHEMOGLOBIN 0.2 % (0.0-1.5); BG OXYGEN SATURATION 95.3 % (92.0-98.5); BG OXYHEMOGLOBIN 94.8 % (94.0-97.0); BG PCO2 32.3 mmHg (35.0-45.0); BG PH 7.447 (7.350-7.450); BG PO2 79.2 mmHg (75.0-100.0); BG SAMPLE SITE RIGHT BRACHIAL; BG TOTAL HEMOGLOBIN 9.4 g/dL (12.0-18.0); BG VENT MODE ROOM AIR
[2019-07-14] MEDS ORDERED: INFLUENZA VIRUS VACCINE(AFLURIA) 0.5ML SYR IM ONE (12:00)
[2019-07-14 16:38] LABS: HEMATOCRIT 28.1 % (42.0-52.0); HEMOGLOBIN 9.1 g/dL (14.0-18.0); MEAN CORPUSCULAR HEMOGLOBIN 24.9 pg (28.0-32.0); MEAN CORPUSCULAR VOLUME 76.3 fL (80.0-94.0); PLATELET 148 x1000/uL (130-400); RED BLOOD CELL COUNT 3.68 mill/uL (4.7-6.1); RED CELL DISTRIBUTION WIDTH 22.1 % (11.6-14.6)
[2019-07-14 16:45] LABS: INR 1.3; PROTHROMBIN TIME 14.3 sec (9.6-11.0)
[2019-07-14] MEDS: METHYLPREDNISOLONE SOD SUCC 40 MG/ML VIAL IV SCH (17:00)
[2019-07-14 17:29] LABS: CHLORIDE 107 mEq/L (98-107)
[2019-07-14 17:43] LABS: CREATINE KINASE 68 IU/L (39-308)
[2019-07-14 17:45] LABS: CREATINE KINASE MB FRACTION 1.9 ng/mL (0.5-3.6)
[2019-07-14] MEDS: PIPERACILLIN/TAZOBACTAM 3.375 G in DEXT 5% WATER 100 ML IV SCH ×2 (17:55→23:59)
[2019-07-14] MEDS: LORAZEPAM 2MG/ML CPJ IV PRN (21:32)
[2019-07-15] VITALS: BP 99/64
[2019-07-15 01:23] LABS: CREATINE KINASE MB FRACTION 1.5 ng/mL (0.5-3.6)
[2019-07-15] MEDS: IPRATROPIUM/ALBUTEROL 0.5-3(2.5)MG/3ML NEB HHN SCH ×4 (01:50→21:02)
[2019-07-15] MEDS: LORAZEPAM 2MG/ML CPJ IV PRN ×2 (03:35→21:24)
[2019-07-15 04:00] VITALS: BP 125/72
[2019-07-15] MEDS: METHYLPREDNISOLONE SOD SUCC 40 MG/ML VIAL IV SCH ×2 (05:55→17:04)
[2019-07-15] MEDS: PIPERACILLIN/TAZOBACTAM 3.375 G in DEXT 5% WATER 100 ML IV SCH ×4 (05:55→23:36)
[2019-07-15] MEDS: BLOOD SUGAR DIAGNOSTIC STRIP TEST SCH ×4 (06:29→21:37)
[2019-07-15] MEDS: FUROSEMIDE 40MG/4ML VIAL IVP SCH ×2 (06:29→17:04)
[2019-07-15 07:38] LABS: HEMATOCRIT 30.6 % (42.0-52.0); HEMOGLOBIN 9.7 g/dL (14.0-18.0); MEAN CORPUSCULAR HEMOGLOBIN 24.4 pg (28.0-32.0); MEAN CORPUSCULAR VOLUME 77.1 fL (80.0-94.0); PLATELET 76 x1000/uL (130-400); RED BLOOD CELL COUNT 3.97 mill/uL (4.7-6.1); RED CELL DISTRIBUTION WIDTH 22.2 % (11.6-14.6)
[2019-07-15] MEDS ORDERED: MORPHINE SULFATE 2 MG/ML CPJ (NOT FOR IM USE) IV NR (07:45)
[2019-07-15 08:00] VITALS: BP 115/94
[2019-07-15 08:02] LABS: CHLORIDE 108 mEq/L (98-107)
[2019-07-15] MEDS ORDERED: SODIUM BICARBONATE 4% (2.4MEQ) 5ML VIAL IV ONE (09:26)
[2019-07-15 11:39] VITALS: BP 127/87
[2019-07-15] MEDS: CARVEDILOL 3.125 MG TABLET PO SCH (11:40)
[2019-07-15] MEDS: LOSARTAN POTASSIUM 50 MG TABLET PO SCH (11:40)
[2019-07-15] MEDS: MORPHINE SULFATE 2 MG/ML CPJ (NOT FOR IM USE) IV PRN ×3 (11:41→22:50)
[2019-07-15 13:58] LABS: INR 1.3; PROTHROMBIN TIME 14.4 sec (9.6-11.0)
[2019-07-15 16:00] VITALS: BP 104/62
[2019-07-15 16:09] LABS: HEMATOCRIT 32.3 % (42.0-52.0); HEMOGLOBIN 10.3 g/dL (14.0-18.0); MEAN CORPUSCULAR HEMOGLOBIN 24.6 pg (28.0-32.0); MEAN CORPUSCULAR VOLUME 77.1 fL (80.0-94.0); PLATELET 173 x1000/uL (130-400); RED BLOOD CELL COUNT 4.18 mill/uL (4.7-6.1); RED CELL DISTRIBUTION WIDTH 21.7 % (11.6-14.6)
[2019-07-15 20:00] VITALS: BP 108/64
[2019-07-15] MEDS: TEMAZEPAM 15MG CAPSULE PO PRN (23:43)
[2019-07-16] VITALS: BP 112/69
[2019-07-16] MEDS: IPRATROPIUM/ALBUTEROL 0.5-3(2.5)MG/3ML NEB HHN SCH ×3 (02:38→21:33)
[2019-07-16 04:00] VITALS: BP 128/61
[2019-07-16] MEDS: METHYLPREDNISOLONE SOD SUCC 40 MG/ML VIAL IV SCH ×2 (04:07→17:37)
[2019-07-16] MEDS: LORAZEPAM 2MG/ML CPJ IV PRN ×3 (04:07→22:17)
[2019-07-16] MEDS: BLOOD SUGAR DIAGNOSTIC STRIP TEST SCH ×4 (06:05→20:55)
[2019-07-16] MEDS: PIPERACILLIN/TAZOBACTAM 3.375 G in DEXT 5% WATER 100 ML IV SCH ×3 (06:05→18:50)
[2019-07-16] MEDS: MORPHINE SULFATE 2 MG/ML CPJ (NOT FOR IM USE) IV PRN ×3 (06:07→18:56)
[2019-07-16] MEDS: FUROSEMIDE 40MG/4ML VIAL IVP SCH ×2 (06:25→17:36)
[2019-07-16 07:53] LABS: HEMATOCRIT. 33.1 % (42.0-52.0); HEMOGLOBIN. 10.4 g/dL (14.0-18.0); MEAN CORPUSCULAR HEMOGLOBIN 24.5 pg (28.0-32.0); MEAN CORPUSCULAR VOLUME 77.9 fL (80.0-94.0); MEAN PLATELET VOLUME 8.3 fl (7.4-10.4); PLATELET 192 x1000/uL (130-400); RED BLOOD CELL COUNT 4.25 mill/uL (4.7-6.1)
[2019-07-16 08:00] VITALS: BP 120/89
[2019-07-16 08:09] LABS: CHLORIDE 104 mEq/L (98-107)
[2019-07-16] MEDS: LOSARTAN POTASSIUM 50 MG TABLET PO SCH (08:52)
[2019-07-16] MEDS: CARVEDILOL 6.25 MG TABLET PO SCH ×2 (08:52→21:20)
[2019-07-16 16:25] LABS: *AMPHETAMINES SCREEN URINE NEGATIVE (NEGATIVE); CANNABINOID URINE SCREEN NEGATIVE (NEGATIVE); PHENCYCLIDINE URINE SCREEN NEGATIVE (NEGATIVE)
[2019-07-16 16:26] LABS: *BARBITURATES SCREEN URINE NEGATIVE (NEGATIVE); *BENZODIAZEPINES SCREEN URINE NEGATIVE (NEGATIVE); *COCAINE SCREEN URINE NEGATIVE (NEGATIVE); METHADONE URINE SCREEN NEGATIVE (NEGATIVE); OPIATES URINE SCREEN PRESUMTIVE POSITIVE (NEGATIVE)
[2019-07-16 18:59] LABS: PLATELET ESTIMATE NORMAL
[2019-07-16 20:00] VITALS: BP 122/64
[2019-07-16] MEDS: HYDROCODONE/ACETAMINOPHEN 5/325MG TABLET PO PRN (21:18)
[2019-07-16] MEDS: TEMAZEPAM 15MG CAPSULE PO PRN (21:42)
[2019-07-17] VITALS: BP 122/74
[2019-07-17] MEDS: PIPERACILLIN/TAZOBACTAM 3.375 G in DEXT 5% WATER 100 ML IV SCH ×2 (00:22→05:02)
[2019-07-17] MEDS: IPRATROPIUM/ALBUTEROL 0.5-3(2.5)MG/3ML NEB HHN SCH ×4 (02:09→20:22)
[2019-07-17 04:00] VITALS: BP 107/83
[2019-07-17] MEDS: MORPHINE SULFATE 2 MG/ML CPJ (NOT FOR IM USE) IV PRN (04:32)
[2019-07-17] MEDS: METHYLPREDNISOLONE SOD SUCC 40 MG/ML VIAL IV SCH (04:35)
[2019-07-17] MEDS: BLOOD SUGAR DIAGNOSTIC STRIP TEST SCH ×4 (05:56→20:56)
[2019-07-17] MEDS: FUROSEMIDE 40MG/4ML VIAL IVP SCH (06:17)
[2019-07-17] MEDS: LORAZEPAM 2MG/ML CPJ IV PRN (06:38)
[2019-07-17 08:00] VITALS: BP 116/84
[2019-07-17 08:14] LABS: HEMATOCRIT. 31.9 % (42.0-52.0); HEMOGLOBIN. 10.3 g/dL (14.0-18.0); MEAN CORPUSCULAR HEMOGLOBIN 24.2 pg (28.0-32.0); MEAN CORPUSCULAR VOLUME 75.1 fL (80.0-94.0); MEAN PLATELET VOLUME 8.1 fl (7.4-10.4); PLATELET 198 x1000/uL (130-400); RED BLOOD CELL COUNT 4.24 mill/uL (4.7-6.1); RED CELL DISTRIBUTION WIDTH 21.8 % (11.6-14.6)
[2019-07-17 08:20] LABS: CHLORIDE 102 mEq/L (98-107)
[2019-07-17] MEDS: CARVEDILOL 6.25 MG TABLET PO SCH ×2 (10:04→21:04)
[2019-07-17] MEDS: LOSARTAN POTASSIUM 50 MG TABLET PO SCH (10:04)
[2019-07-17 11:05] LABS: PLATELET ESTIMATE NORMAL
[2019-07-17 12:00] VITALS: BP 118/86
[2019-07-17 16:00] VITALS: BP 122/87
[2019-07-17 20:00] VITALS: BP 115/72
[2019-07-17] MEDS: HYDROCODONE/ACETAMINOPHEN 5/325MG TABLET PO PRN (21:05)
[2019-07-18] VITALS: BP 139/80
[2019-07-18] MEDS: TEMAZEPAM 15MG CAPSULE PO PRN ×2 (00:11→21:29)
[2019-07-18] MEDS: IPRATROPIUM/ALBUTEROL 0.5-3(2.5)MG/3ML NEB HHN SCH ×4 (03:14→20:27)
[2019-07-18 04:00] VITALS: BP 131/76
[2019-07-18] MEDS: LORAZEPAM 2MG/ML CPJ IV PRN (04:01)
[2019-07-18] MEDS: BLOOD SUGAR DIAGNOSTIC STRIP TEST SCH ×4 (06:08→19:46)
[2019-07-18 06:53] LABS: HEMATOCRIT. 31.9 % (42.0-52.0); HEMOGLOBIN. 10.2 g/dL (14.0-18.0); MEAN CORPUSCULAR HEMOGLOBIN 24.1 pg (28.0-32.0); MEAN PLATELET VOLUME 8.1 fl (7.4-10.4); PLATELET 218 x1000/uL (130-400); RED BLOOD CELL COUNT 4.25 mill/uL (4.7-6.1); RED CELL DISTRIBUTION WIDTH 21.9 % (11.6-14.6)
[2019-07-18 06:58] LABS: CHLORIDE 104 mEq/L (98-107)
[2019-07-18 08:00] VITALS: BP 158/104
[2019-07-18] MEDS: FUROSEMIDE 40MG TABLET PO SCH (09:32)
[2019-07-18] MEDS: CARVEDILOL 6.25 MG TABLET PO SCH ×2 (09:32→21:29)
[2019-07-18] MEDS: ASPIRIN 81MG TABLET PO SCH (09:32)
[2019-07-18] MEDS: METHYLPREDNISOLONE SOD SUCC 40 MG/ML VIAL IV SCH (09:33)
[2019-07-18] MEDS: LOSARTAN POTASSIUM 50 MG TABLET PO SCH (09:33)
[2019-07-18 12:00] VITALS: BP 124/74
[2019-07-18] MEDS: MORPHINE SULFATE 2 MG/ML CPJ (NOT FOR IM USE) IV PRN ×2 (13:53→20:10)
[2019-07-18 17:06] VITALS: BP 110/80
[2019-07-18 19:34] LABS: PLATELET ESTIMATE NORMAL
[2019-07-18 20:00] VITALS: BP 130/90
[2019-07-19] VITALS: BP 118/84
[2019-07-19] MEDS: IPRATROPIUM/ALBUTEROL 0.5-3(2.5)MG/3ML NEB HHN SCH ×3 (02:21→13:16)
[2019-07-19] MEDS: MORPHINE SULFATE 2 MG/ML CPJ (NOT FOR IM USE) IV PRN ×2 (03:27→08:21)
[2019-07-19 04:00] VITALS: BP 103/67
[2019-07-19] MEDS: BLOOD SUGAR DIAGNOSTIC STRIP TEST SCH ×3 (06:10→16:45)
[2019-07-19 06:16] LABS: CHLORIDE 108 mEq/L (98-107)
[2019-07-19 06:26] LABS: BASOPHILS % 0.2 % (0.0-2.0); EOSINOPHILS % 1.9 % (0.0-5.0); HEMATOCRIT. 31.2 % (42.0-52.0); LYMPHOCYTES % 32.6 % (20.0-50.0); MEAN CORPUSCULAR HEMOGLOBIN 24.1 pg (28.0-32.0); MEAN CORPUSCULAR VOLUME 75.4 fL (80.0-94.0); MEAN PLATELET VOLUME 8.2 fl (7.4-10.4); MONOCYTES % 10.5 % (2.0-8.0); NEUTROPHILS % 54.8 % (40.0-76.0); PLATELET 197 x1000/uL (130-400); RED BLOOD CELL COUNT 4.13 mill/uL (4.7-6.1); RED CELL DISTRIBUTION WIDTH 21.6 % (11.6-14.6)
[2019-07-19 08:00] VITALS: BP 118/85
[2019-07-19] MEDS: METHYLPREDNISOLONE SOD SUCC 40 MG/ML VIAL IV SCH (08:19)
[2019-07-19] MEDS: ASPIRIN 81MG TABLET PO SCH (08:19)
[2019-07-19] MEDS: CARVEDILOL 6.25 MG TABLET PO SCH (08:20)
[2019-07-19] MEDS: FUROSEMIDE 40MG TABLET PO SCH (08:20)
[2019-07-19] MEDS: LOSARTAN POTASSIUM 50 MG TABLET PO SCH (08:20)
[2019-07-19] MEDS ORDERED: POTASSIUM CHLORIDE 20MEQ TABLET SR PO SCH (09:30)
[2019-07-19 12:00] VITALS: BP 124/78
[2019-07-19 16:00] VITALS: BP 120/69
[2019-07-19 19:53] VITALS: BP 138/78
== END 2019-07-19 20:42 | DRG 291 ==
LOC: ER 13:45 → 5WST 19:48 → EDBEDREQ 19:52 → ENRESERV 21:13 → 5WST 07-16 10:41
PROVIDERS: ADMIT Internal Medicine; ATTEND Internal Medicine
PROC: 0W993ZZ Drainage of Right Pleural Cavity, Percutaneous Approach (ICD-10-PCS; principal; 2019-07-15)
DX: I11.0 Hypertensive heart disease with heart failure (principal); J96.00 Acute respiratory failure, unspecified whether with hypoxia or hypercapnia; J44.1 Chronic obstructive pulmonary disease with (acute) exacerbation; R18.8 Other ascites; I31.3 Pericardial effusion (noninflammatory); K80.10 Calculus of gallbladder with chronic cholecystitis without obstruction; J84.9 Interstitial pulmonary disease, unspecified; D68.9 Coagulation defect, unspecified; K92.1 Melena; J91.8 Pleural effusion in other conditions classified elsewhere; I50.23 Acute on chronic systolic (congestive) heart failure; I42.9 Cardiomyopathy, unspecified; B19.20 Unspecified viral hepatitis C without hepatic coma; D50.9 Iron deficiency anemia, unspecified; E11.9 Type 2 diabetes mellitus without complications; I07.1 Rheumatic tricuspid insufficiency; K74.60 Unspecified cirrhosis of liver; N28.1 Cyst of kidney, acquired; D69.6 Thrombocytopenia, unspecified; D72.819 Decreased white blood cell count, unspecified; E86.0 Dehydration; E78.5 Hyperlipidemia, unspecified; G40.909 Epilepsy, unspecified, not intractable, without status epilepticus; R74.8 Abnormal levels of other serum enzymes; I25.10 Atherosclerotic heart disease of native coronary artery without angina pectoris; I77.810 Thoracic aortic ectasia; I48.91 Unspecified atrial fibrillation; Z86.711 Personal history of pulmonary embolism; Z86.73 Personal history of transient ischemic attack (TIA), and cerebral infarction without residual deficits
CPT/HCPCS: 32555; 36415; 36600; 71045; 74176; 76700; 80048; 80053; 80076; 80305; 81003; 82040; 82248; 82270; 82375; 82378; 82550; 82553; 82805; 82962; 83540; 83615; 83735; 83880; 84478; 84484; 85025; 85027; 86850; 86900; 88108; 88312; 90686; 93005; 93306; 93970; 94640; 97162; 99285; J1650; J1940; J2060; J2270; J2543; J2920; J3490; J7060